=== PATIENT | female | born 1950 | race Caucasian/White ===

== ENCOUNTER → 2017-06-28 | Outpatient (CLI) | payer MEDICARE, MEDICAID ==
[~2017-06-28] MED LIST: ACETAMINOPHEN500 M3 PO; ADVAIR 250/5028 PUFF IN; ALBUTEROL-200 PUFFS/ IH; AMIODARONE 200200 MG PO; ASPIRIN 81MG TA81 MG PO; ASPIRIN EC81 MG PO; ATIVAN GENERIC0.5 MG PO; ATIVAN1 MG PO; BACTRIM DS 8001 TAB PO; BISAC-EVAC10 MG PR; BISOPROLOL 5MG T5 MG PO; CARMEX TP; CARVEDILOL 1212.5 MG PO; CARVEDILOL6.25 MG PO; CEFDINIR300 MG PO; CELEXA10 MG PO; CELEXA20 MG PO; CHEWABLE ASPIRI81 MG PO; CIPRO 500MG TA500 MG PO; COMBIVENT INH14.7 GM IN; DESYREL GENERIC50 MG PO; DIGOX0.25 MG PO; DIGOXIN0.25 MG PO; DOCUSATE SODIU250 M1 PO; DUONEB 3 MG/3 ML3 ML IH; FERROUS SULFAT325 M2 PO; FISH OIL1000 MG PO; HALDOL DECAN50 MG/ML IM; HYDROXYZINE10 MG PO; KLOR-CON 1010 MEQ PO; LACTULOSE20 GM/30 M PO; LANOXIN 0.120.125 MG PO; LASIX40 MG PO; LEVAQUIN500 MG PO; LEVEMIR 10100 UNITS/ SC; LIQUITEARS 15 M15 M1 OP; LIQUITEARS 15 M15 ML OP; LISINOPRIL 10MG10 MG PO; LISINOPRIL10 MG PO; LISINOPRIL20 MG PO; LISINOPRIL5 MG PO; LOPERAMIDE2 MG PO; LOPID 600MG TA600 MG PO; LOPRESSOR 25MG.25 MG PO; LOVAZA1 GM PO; METFORMIN1000 MG PO; METOPROLOL TART50 MG PO; METOPROLOL25 MG PO; MIRALAX17 GM/PACK PO; MULTIVITAMIN1 TA1 PO; NEXIUM40 MG PO; NITROGLYCERIN0.4 MG SL; Novolog100 U/ML; OMNICEF 300 MG300 MG PO; PANTOPRAZOLE40 M1 PO; PHENERGAN 2525 MG/ML IM; PHENERGAN PO; PREDNISONE 20MG20 MG PO; PREDNISONE 5MG.5 MG PO; PREDNISONE50 MG PO; PROCARDIA XL30 MG PO; PROMETHAZINE12.5 M1 PO; RANITIDINE HCL150 MG PO; RISPERDAL 1 MG T1 MG PO; RISPERIDONE1 MG PO; ROBITUSSIN DM PO; ROCEPHIN 1 GM VI1 GM IV; ROCEPHIN1 GM IM; SEROQUEL 100MG100 MG PO; SEROQUEL50 MG PO; SIMVASTATIN20 MG PO; SIMVASTATIN40 MG PO; STERAPRED DS10 MG PO; TRAZODONE 50MG50 MG PO; TYLENOL 325MG325 MG PO; TYLENOL ES500 M1 PO; TYLENOL ES500 MG PO; ZANTAC 150150 MG PO; ZOCOR20 MG PO; ZOFRAN 2MG/4 MG/2 ML IM
[2017-06-28 10:47] LABS: LYMPH # 1.5 K/mm3 (0.7-4.5); LYMPH % 23.3 % (10-50.0)
[2017-06-28 10:57] LABS: HEMOGLOBIN 10.6 g/dL (12.2-16.2)
[2017-06-28 12:49] LABS: BUN 17 mg/dL (7-18); GFR (ESTIMATED) 83 ML/MIN (59-)
== END ==
LOC: LAB 10:31
PROVIDERS: Internal Medicine
DX: E78.5 Hyperlipidemia, unspecified (principal); E11.9 Type 2 diabetes mellitus without complications; Z79.899 Other long term (current) drug therapy